=== PATIENT | male | born 1960 | race Two or more races ===

== ENCOUNTER 2021-04-01 13:43 | Emergency (ER) | payer SELFPAY ==
[~2021-04-01] VITALS: Ht 175.3 cm; Wt 75.0 kg
[2021-04-01 18:41] VITALS: BP 118/63
== END 2021-04-01 18:44 | disposition home or self-care (01) ==
LOC: ER 13:52
DX: F10.229 Alcohol dependence with intoxication, unspecified (principal); Y90.0 Blood alcohol level of less than 20 mg/100 ml
CPT/HCPCS: 82962; 99283; Z7610